=== PATIENT | male | born 1965 | race Caucasian/White ===

== ENCOUNTER 2017-07-31 21:26 | Emergency (ER) | payer MEDICARE, SELFPAY ==
[2017-07-31 21:30] VITALS: BP 110/66; PULSE 84; RESP 18; TEMP 36.7; O2SAT 95; BMI 28.3
[2017-07-31 22:21] LABS: HEMOLYSIS < 15 (0-50)
[2017-07-31 22:22] LABS: Add Manual Diff / Slide Review NO; Basophils Percent Auto 0.5 % (0-2); Eosinophils Percent Auto 0.6 % (2-4); Hematocrit 48.2 % (41-53); Hemoglobin 16.7 g/dL (13.5-17.5); Lymphocytes Percent Auto 8.4 % (25-40); Mean Corpuscular HGB Conc 34.7 % (30-36); Mean Corpuscular Hemoglobin 32.9 PG (26-34); Mean Corpuscular Volume 94.7 fL (80-100); Monocytes Percent Auto 4.5 % (3-14); Neutrophils Absolute Auto 8200 /uL (3000-5900); Platelet Count 306 X10^3/uL (150-400); Red Blood Cell Count 5.09 X10^6/uL (4.5-5.9); Red Cell Distribution Width 13.1 % (11.6-14.8); White Blood Cell Count 9.6 X10^3/uL (4.5-11.0)
[2017-07-31 22:28] LABS: Alanine Aminotransferase 34 IU/L (21-72); Albumin 4.5 g/dL (3.5-5.0); Albumin Globulin Ratio 1.5 (1.0-2.8); Alkaline Phosphatase 44 U/L (38-126); Aspartate Aminotransferase 22 IU/L (17-59); Bilirubin Total 0.6 mg/dL (0.2-1.3); Blood Urea Nitrogen 18 mg/dL (9-20); Calcium 9.1 mg/dL (8.4-10.2); Carbon Dioxide 27 mmol/L (22-32); Chloride 101 mmol/L (98-107); Estimated Glomerular Filt Rate > 60.0 mL/min (>60); Glucose 110 mg/dL (70-100); Potassium 3.9 mmol/L (3.4-5.1); Sodium 142 mmol/L (137-145); Total Protein 7.5 g/dL (6.3-8.2)
[2017-07-31 22:30] VITALS: BP 112/71; PULSE 76; RESP 17; O2SAT 96
[2017-07-31] MEDS: SODIUM CHLORIDE 0.9% 1,000 ML 1000 ML IV (22:33)
[2017-07-31] MEDS: ACETAMINOPHEN 325 MG TABLET 975 MG PO (22:33)
--- NOTE | 2017-07-31 22:41 | PC.NURSE ---
lamotrigine 100mg tab ordered. Pt has home meds with him. Pt took 1 tab of 100mg lamotrigine as ordered from home supply. Dr Singh aware and OK'd
--- NOTE | 2017-07-31 22:55 | ED_ITS ---
HPI - Seizure General Chief Complaint: Seizure Stated Complaint: TWO SEIZURES NO SLEEP Time Seen by Provider: 07/31/17 22:26 Source: patient and family Mode of arrival: ambulatory Limitations: no limitations History of Present Illness HPI Narrative: Patient is a 51-year-old male who has a history of epilepsy presenting with 2 seizures tonight. His 1st seizure was at 630. Stepdaughter says it lasted for about 5 min he was a little postictal but came around. Then had a 2nd seizure at 8:30 pm. this evening which also lasted about 5 min but has now come around as well. He states he supposed to take lamotrigine 100 twice a day but for the past few months he has only been taking it once a day he forgets to take his morning dose. Previously he has not had a seizure for number of years. He was put on Keppra which he says caused seizures. Denies urinary incontinence or tongue injury He currently has a headache but no other symptoms. He did not have incontinence or bite his tongue. He does have a mild headache. He had a granola bar which he thinks is also helping. He admits to eating and sleeping regularly Related Data Home Medications Medication Instructions Recorded Confirmed aspirin 81 mg PO QDAY #0 05/29/16 atorvastatin [Lipitor] 10 mg PO HS #0 05/29/16 aspirin [Aspir-81] 81 07/31/17 lamotrigine 100 mg PO BID 07/31/17 07/31/17 Previous Rx's Medication Instructions Recorded aripiprazole [Abilify] 2 mg PO QDAY #90 tab 01/23/17 clonazepam [Klonopin] 2 mg PO HS #60 tab 01/23/17 trazodone 50 mg PO HS #90 tab 01/23/17 gabapentin [Neurontin] 1,200 mg PO HS #360 cap 04/27/17 Allergies Allergy/AdvReac Type Severity Reaction Status Date / Time Penicillins Allergy Intermediate HIVES Verified 07/31/17 21:52 Review of Systems Review of Systems All systems reviewed & are unremarkable except as noted in HPI and below Constitutional Denies chills, Denies fever(s), Denies lethargy and Denies weakness Cardiovascular Denies chest pain, Denies irregular heart rhythm, Denies lightheadedness, Denies palpitations, Denies dyspnea, Denies dyspnea on exertion and Denies orthopnea Respiratory Denies cough, Denies dyspnea, Denies dyspnea on exertion and Denies wheezing Gastrointestinal Gastrointestinal: Denies abdominal pain, Denies change in bowel habits, Denies diarrhea, Denies nausea and Denies vomiting Musculoskeletal Denies back pain, Denies muscle weakness, Denies numbness and Denies tingling Integumentary/Breasts Denies pruritus, Denies erythema, Denies rash and Denies wounds Neurologic Reports system reviewed and no additional complaints, except as docu, Reports as per HPI, Denies numbness, Reports seizure-like activity, Denies tingling and Denies weakness Endocrine Denies palpitations Allergic/Immunologic Denies wheezing PFSH Medical History CVA (cerebral vascular accident) (Acute) Seizure (Acute) Social History Smoking Status: Current every day smoker Exam Initial Vital Signs Initial Vital Signs: Vital Signs Temperature 98.1 F 07/31/17 21:30 Pulse Rate 84 07/31/17 21:30 Respiratory Rate 18 07/31/17 21:30 Blood Pressure 110/66 07/31/17 21:30 Pulse Oximetry 95 07/31/17 21:30 GENERAL: Well-appearing, well-nourished and in no acute distress. HEENT: Head atraumatic,EOMI, pupils reactive, face symmetric, no tongue injury CARDIOVASCULAR: Regular rate and rhythm without murmurs, rubs or gallops. RESPIRATORY: Breath sounds equal bilaterally, no wheezes rales or rhonchi. ABDOMEN: Soft, nontender. Normoactive bowel sounds all 4 quadrants. No guarding or rebound. EXTREMITIES: Normal range of motion, no clubbing or edema. Neurovascularly intact NEUROLOGICAL: Alert and oriented x4.Normal gait and speech. Cranial nerves II through XII grossly intact. And he has residual left-sided weakness from stroke but at baseline. SKIN: Warm, dry, no laceration, no petechiae, no rashes or lesions. Course Orders Ordered: ED Orders 07/31/17 22:10 Complete Blood Count AUTO DIFF Stat Comprehensive Metabolic Panel Stat Prolactin Stat Discontinued Medications Acetaminophen (Tylenol) 975 mg PO NOW ONE Stop: 07/31/17 22:29 Last Admin: 07/31/17 22:33 Dose: 975 mg Sodium Chloride (Normal Saline 0.9%) 1,000 mls @ 1,000 mls/hr IV BOLUS ONE Stop: 07/31/17 23:25 Last Infusion: 07/31/17 23:52 Dose: 0 mls/hr Admin: 07/31/17 22:33 Dose: 1,000 mls/hr Lamotrigine (Lamictal) 100 mg PO NOW ONE Stop: 07/31/17 22:27 Last Admin: 07/31/17 22:40 Dose: Vital Signs - 8 hr 07/31/17 21:30 07/31/17 22:30 07/31/17 23:00 Temperature 98.1 F Pulse Rate 84 76 77 Respiratory Rate 18 17 16 Blood Pressure 110/66 Blood Pressure [Left Arm] 112/71 116/65 Pulse Oximetry 95 96 98 07/31/17 23:30 08/01/17 00:00 08/01/17 00:32 Temperature Pulse Rate 81 75 73 Respiratory Rate 16 16 16 Blood Pressure 106/63 Blood Pressure [Left Arm] 103/69 106/60 Pulse Oximetry 97 97 98 MDM - Seizure Lab Data Attestation: I reviewed the patient's lab results. Result diagrams: 07/31/17 22:10 07/31/17 22:10 Lab Results 07/31/17 07/31/17 Range/Units 22:10 22:10 WBC 9.6 (4.5-11.0) X10^3/uL RBC 5.09 (4.5-5.9) X10^6/uL Hgb 16.7 (13.5-17.5) g/dL Hct 48.2 (41-53) % MCV 94.7 (80-100) fL MCH 32.9 (26-34) PG MCHC 34.7 (30-36) % RDW 13.1 (11.6-14.8) % Plt Count 306 (150-400) X10^3/uL Neut % (Auto) 86.0 H (50-75) % Lymph % (Auto) 8.4 L (25-40) % Daniels % (Auto) 4.5 (3-14) % Eos % (Auto) 0.6 L (2-4) % Baso % (Auto) 0.5 (0-2) % Neut # (Auto) 8200 H (4116-9379) /uL Sodium 142 (137-145) mmol/L Potassium 3.9 (3.4-5.1) mmol/L Chloride 101 (98-107) mmol/L Carbon Dioxide 27 (22-32) mmol/L BUN 18 (9-20) mg/dL Creatinine 1.20 (0.66-1.25) mg/dL Estimated GFR > 60.0 (>60) mL/min BUN/Creatinine Ratio 15.0 (6-22) Glucose 110 H (70-100) mg/dL Calcium 9.1 (8.4-10.2) mg/dL Total Bilirubin 0.6 (0.2-1.3) mg/dL AST 22 (17-59) IU/L ALT 34 (21-72) IU/L Alkaline Phosphatase 44 (38-126) U/L Total Protein 7.5 (6.3-8.2) g/dL Albumin 4.5 (3.5-5.0) g/dL Globulin 3.0 (1.7-4.1) g/dL Albumin/Globulin Ratio 1.5 (1.0-2.8) Prolactin 9.9 (3.7-17.9) ng/mL MDM Narrative Medical decision making narrative: A breakthrough seizure likely from noncompliance to medication. He previously was very well controlled. However he says he cannot remember to take his morning dose of Lamictal. Also reports of not sleeping very well either also can compound and increased seizure activity. The patient was given 2nd dose of Lamictal in the ED. No seizure activity in 3 hr. Blood work has been reviewed. Recommended he follow up with his neurologist Discharge Plan Departure Patient Disposition: Home, Self-Care Clinical Impression: Generalized seizure Discharge Date/Time: 08/01/17 00:35 Interventions: ED Discharge Assessment Last Done: 08/01/17 00:32 Instructions: DI for Seizure Disorder -- Adult Activity Restrictions/Additional Instructions: Do not drive *You have been diagnosed with seizure *What to do: Eat regularly and be sure to get enough sleep each night. Seizures today thought to be due to on decreasing the Lamictal. *Continue to take medications as directed -take Lamictal twice a day as prescribed *Follow up with your primary care provider in 2-3 days, call neurologist on Thursday to schedule follow-up appointment *Return to ER if you should have recurrence seizures, change in seizure pattern or any new, worsening or concerning symptoms Prescriptions: No Action atorvastatin [Lipitor] 10 MG tablet 10 mg PO HS Qty: 0 RF: 0 aspirin 81 MG tablet,delayed release (DR/EC) 81 mg PO QDAY Qty: 0 RF: 0 trazodone 50 MG tablet 50 mg PO HS Qty: 90 RF: 5 aripiprazole [Abilify] 2 MG tablet 2 mg PO QDAY Qty: 90 RF: 2 clonazepam [Klonopin] 1 MG tablet 2 mg PO HS Qty: 60 RF: 5 gabapentin [Neurontin] 300 MG capsule 1,200 mg PO HS Qty: 360 RF: 2 lamotrigine 100 mg Tablet 100 mg PO BID RF: 0 aspirin [Aspir-81] 81 mg Tablet,Delayed Release (Dr/Ec) 81 RF: 0 Referrals: Jenna Hurst MD [Primary Care Provider] -
[2017-07-31 23:00] VITALS: BP 116/65; PULSE 77; RESP 16; O2SAT 98
[2017-07-31 23:30] VITALS: BP 103/69; PULSE 81; RESP 16; O2SAT 97
[2017-08-01] VITALS: BP 106/60; PULSE 75; RESP 16; O2SAT 97
[2017-08-01 00:02] LABS: Prolactin 9.9 ng/mL (3.7-17.9)
[2017-08-01 00:32] VITALS: BP 106/63; PULSE 73; RESP 16; O2SAT 98
== END 2017-08-01 00:35 | disposition home or self-care (01) ==
PROVIDERS: Emergency Provider Emergency Medicine; Family Provider Internal Medicine; PCP Internal Medicine
DX: R56.9 Unspecified convulsions (principal)
CPT/HCPCS: 36591; 80053; 82962; 84146; 85025; 96360; 99283; 99284; 99291